=== PATIENT | male | born 1980 | race Caucasian/White ===

== ENCOUNTER → 2021-10-14 15:22 | Outpatient (CLI) | payer OTHER, SELFPAY ==
--- NOTE | ~2021-10-14 | US_ITS ---
US axilla LT 10/14/2021 15:45 Indication: Swollen left axillary lymph nodes. Procedure: High-resolution ultrasound of the left axilla Comparison: No prior studies for comparison. Findings: There are normal left axillary lymph nodes, largest measuring 1.3 cm maximum dimension with normal fatty hilum. No suspicious masses or fluid collections. Impression: 1: Normal left axillary lymph nodes. Reviewed, dictated and finalized at location A. [employer] DAYC[employer] PROVIDER Impression: 1: Normal left axillary lymph nodes.
== END ==
PROVIDERS: PCP Nurse Practitioner; Visit Provider Nurse Practitioner
DX: R59.0 Localized enlarged lymph nodes (principal)
CPT/HCPCS: 76882

== ENCOUNTER 2022-04-09 10:16 | Observation (INO) | payer OTHER, SELFPAY ==
[2022-04-09] VITALS (30 sets, daily range): BP systolic 100–126; BP diastolic 53–84; PULSE 65–108; RESP 12–20; TEMP 36.4–36.6; O2SAT 92–100; BMI 25.8
--- NOTE | ~2022-04-09 | CT_ITS ---
EXAMINATION: CT brain wo con INDICATION: Transient alteration of awareness, head injury COMPARISON: None TECHNIQUE: Standard unenhanced head CT. The dose-length product (DLP) was 681.00 mGy-cm. The mA was a djusted according to patient size. Iterative reconstruction technique was employed. FINDINGS: There is no intracranial hemorrhage, acute infarction, or abnormal mass lesion. The ventric les are normal. There is no abnormal mass effect or midline shift. The finch-white matter differentiat ion is normal. The basal cisterns are patent. There is a right parietal scalp hematoma. The orbits ar e normal. There is mild mucosal thickening of the paranasal sinuses. IMPRESSION: 1. RIght parietal scalp hematoma without acute intracranial abnormality. 2. Sinus disease. Reviewed, dictated and finalized at location A.
--- NOTE | 2022-04-09 10:20 | ECG_ITS ---
Measurements Intervals [place] Rate: 90 P: 44 HI: 183 QRS: 52 QRSD: 85 T: 77 QT: 309 QTc: 378 Interpretive Statements SINUS RHYTHM NONSPECIFIC T-WAVE ABNORMALITY NO PREVIOUS ECG AVAILABLE FOR COMPARISON Electronically Signed On 04-09-2022 16:47:54 CDT by Liya Leija M.D.
[2022-04-09 10:36] LABS: Basophils Percent Auto 0.4 % (0.2-1.2); Eosinophils Absolute Auto 0.1 K/mm3 (0-0.3); Eosinophils Percent Auto 2.1 % (0-4.4); Hematocrit 41.5 % (42.0-52.0); Hemoglobin 13.6 g/dL (14.0-18.0); Immature Granulocyte Absolute 0.01 K/mm3 (0.00-0.031); Immature Granulocyte Percent A 0.2 % (0-0.5); Immature Platelet Fraction Pct 8.4 % (0.9-11.2); Lymphocytes Absolute Auto 0.65 K/mm3 (0.9-3.2); Lymphocytes Percent Auto 12.6 % (18.3-44.2); Mean Corpuscular HGB Conc 32.8 g/dl (32-36); Mean Corpuscular Hemoglobin 29.4 pg (26-34); Mean Corpuscular Volume 89.6 fl (80-100); Mean Platelet Volume 10.6 fl (7.4-10.4); Monocytes Absolute Auto 0.4 K/mm3 (0.1-0.6); Monocytes Percent Auto 8.1 % (2.6-8.5); Neutrophils Percent Auto 76.6 % (45.5-73.1); Platelet Count Result 112 k/mm3 (150-375); Red Blood Count 4.63 M/mm3 (4.6-6.20); White Blood Count 5.2 K/mm3 (4.5-10.0)
[2022-04-09 10:44] LABS: Alanine Aminotransferase 23 U/L (6-50); Albumin Level 4.4 g/dL (3.5-5.1); Alkaline Phosphatase 76 U/L (38-126); Anion Gap 6 mmol/L (8-16); Aspartate Amino Transferase 27 U/L (17-59); Bilirubin,Total 0.7 mg/dL (0.2-1.3); Blood Urea Nitrogen 12 mg/dL (9-20); Calcium 8.4 mg/dL (8.4-10.2); Carbon Dioxide 27 mmol/L (22-30); Chloride 103 mmol/L (98-107); Estimated Glomerular Filt Rate > 60; Glucose 100 mg/dL (65-110); Potassium 4.2 mmol/L (3.4-5.0); Sodium 136 mmol/L (137-145)
--- NOTE | 2022-04-09 12:05 | ED.GENADULT ---
HPI - General Adult General Chief complaint: Syncope Stated complaint: Fever, Syncope Time Seen by Provider: 04/09/22 11:31 History of Present Illness HPI narrative: 41-year-old male presented to the emergency department for evaluation after having a syncopal episode. Patient states yesterday when he woke up he was having body aches and these persisted throughout the day. Patient states last night he was having chills and rigors but denies any fever. Patient states he was camping last week. Patient denies having any ticks. Patient states other people who are camping with did have ticks. Patient denies any rash. Patient complains of generalized body aches but no specific joint pain. Patient is vaccinated and boostered to COVID. Patient states this morning he was urinating and after urination he felt like he was going to pass out. Patient called out to his and did ultimately fall and strike his head. Patient did have a brief loss of consciousness. Patient initially denied any headache upon arrival to the ED. Related Data Allergies Allergy/AdvReac Type Severity Reaction Status Date / Time No Known Allergies Allergy Verified 04/09/22 14:52 Review of Systems Review of Systems: CONSTITUTIONAL: See HPI EYES: Denies visual changes, redness, or discharge. ENT: Denies rhinorrhea, congestion, sore throat, or otalgia. CARDIOVASCULAR: Denies chest pain, palpitations, or edema. RESPIRATORY: Denies cough or dyspnea. GASTROINTESTINAL: Denies abdominal pain, nausea, vomiting, or diarrhea. GENITOURINARY: Denies dysuria or hematuria. SKIN: Denies rash or itching. MUSCULOSKELETAL: Generalized myalgia. NEUROLOGIC: See HPI PMFSH Family History Family History Grandparent Family history of chronic obstructive pulmonary disease Family history of lung cancer Family history of malignant neoplasm of breast Mother Family history of malignant neoplasm of breast, Onset Age: 63 Social History Social History Smoking status: Never smoker Second hand tobacco smoke exposure: No Alcohol intake: current Substance use: never Spiritual care concerns: No Exam Narrative: APPEARANCE: Well appearing, no pain, no distress, well-nourished. HEAD: normocephalic, atraumatic. EYES: PERRLA/EOMI, conjunctivae clear. NOSE: Normal no drainage EARS:TMS clear with good light reflex. THROAT: Pharynx clear, no exudate. NECK: Supple. No adenopathy, no masses. RESPIRATORY: Airway patent, respirations nonlabored. Clear to auscultation bilaterally, no rales, rhonchi, wheezing. CARDIOVASCULAR: Regular rate and rhythm without murmurs rubs or gallops. ABDOMINAL: Soft, nontender, nondistended, normal bowel sounds MUSCULOSKELETAL: Moves all extremities. Strength/ROM intact, No edema, No calf tenderness. NEURO: Alert. Cranial nerves II through XII intact. Grossly intact SKIN: Warm, dry. Normal Color. Scalp abrasion Course Course Emergency Course: During patient's orthostatic vitals he had onset of bradycardia and another syncopal episode. Head CT was negative. Patient's flu and COVID were negative. Case discussed with the hospitalist and patient was admitted to telemetry. All questions concerns were addressed. Patient was stable at time of admission. Vital Signs Vital signs: Vital Signs Temperature 97.7 F 04/09/22 10:24 Pulse Rate 96 04/09/22 10:24 Respiratory Rate 20 04/09/22 10:24 Blood Pressure 118/72 04/09/22 10:24 Pulse Oximetry 100 04/09/22 10:24 Oxygen Delivery Room Air 04/09/22 10:24 Temperature 97.6 F 04/09/22 17:18 Pulse Rate 80 04/09/22 17:18 Respiratory Rate 20 04/09/22 17:18 Blood Pressure 114/60 04/09/22 17:18 Pulse Oximetry 92 04/09/22 17:18 Oxygen Delivery Room Air 04/09/22 17:22 Medical Decision Making Vital Signs Vital Signs: Vital Signs Temperature 97.7 F
--- NOTE | 2022-04-09 14:52 | PC.NURSE ---
PT CLOSE TO SYNCOPAL EVENT WHILE DOING ORTHOS. PROVIDER AWARE LABS ADDED, CT ORDERED, FLUIDS TO BE GIVEN
[2022-04-09 15:02] LABS: Influenza A QL RT-PCR Negative (Negative); Influenza B QL RT-PCR Negative (Negative); SARS-CoV-2 RNA PCR Negative
[2022-04-09] MEDS: SODIUM CHLORIDE 0.9% IV 1,000 ML 999 ML IV CONT (15:03)
[2022-04-09 15:19] LABS: Appearance Urine Clear (Clear); Bilirubin Urine Negative (Negative); Blood Urine Negative (Negative); Glucose Urine UA Negative (Negative); Ketones Urine 1+ mg/dL (Negative); Leukocyte Esterase Ur Negative LEU/UL (Negative); Nitrate Urine Negative (Negative); Protein Urine Negative (Negative); Specific Grav Ur 1.015 (1.001-1.035); Urobilinogen Urine 0.2 mg/dL (<2.0)
[2022-04-09 15:20] LABS: Add Urine Microscopic? YES; Color Urine Light Yellow (Yellow)
[2022-04-09 15:25] LABS: RBC Urine 0-2 /hpf (0-2); WBC Urine 0-3 /hpf
--- NOTE | 2022-04-09 15:30 | PM.IMHP ---
H&P: HPI History of Present Illness Date/Time: 04/09/22 15:30 Chief Complaint: Syncope. Narrative: This is a 41-year-old male with psoriasis who presented to the ED via private vehicle from home for evaluation after syncopal episode. Yesterday morning he woke up to mild, generalized body aches and a slight sore throat. He took Advil and was able to go to work however last night he once again started experiencing body aches and slept poorly due to the aches and chills. This morning after urinating he started to feel lightheaded and woozy so he called out for his and as she entered the room he was falling backwards onto the floor. He briefly lost consciousness and he was not confused when he came to. They decided that he probably need to be checked out and in son helped him up. He was able to get dressed, walk to the car, and walk into the hospital without issue. His workup has been relatively unremarkable and in fact there were plans for probable discharge however when orthostatic vital signs were being obtained he became woozy, pale, and bradycardic. He does not think he lost consciousness this time however staff members report that he was not very responsive. I was asked to admit the patient in this setting for further evaluation. With further questioning his daughter had a fever for about 24 hours a couple of days ago though that has since resolved. The family went camping last weekend though he denies mosquito and tick bites he does report that multiple members of his camping democrat found several ticks on their person's. At the time my evaluation he is resting comfortably. He denies headache, vertigo, focal weakness, paresthesias, significant cold and flu symptoms, chest pain, pleuritic pain, palpitations, nausea, vomiting, diarrhea, dysuria, joint swelling, joint redness, rash, and lesions Review of Systems Review of Systems: Twelve systems were reviewed and are negative except for as per HPI. [facility] Past Medical History Medical History (Updated 04/09/22 @ 23:30 by Chayo Kapoor PA-C) Psoriasis Surgical History Surgical History (Updated 04/09/22 @ 22:38 by Chayo Kapoor PA-C) History of wisdom tooth extraction Family History Family History Grandparent Family history of chronic obstructive pulmonary disease Family history of lung cancer Family history of malignant neoplasm of breast Mother Family history of malignant neoplasm of breast, Onset Age: 63 Social History Social History (Updated 04/09/22 @ 22:39 by Chayo Kapoor PA-C) Social History: Surrogate decision maker: Kianna Salazar, . Code status: Full code. Smoking status: Never smoker Second hand tobacco smoke exposure: No Alcohol intake: current Alcohol use details: Social alcohol use in moderation. Substance use: never Additional living arrangements comments: The patient lives with his and their 4 children in [place]. Spiritual care concerns: No Meds Home Medications and Allergies Allergies Allergy/AdvReac Type Severity Reaction Status Date / Time No Known Allergies Allergy Verified 04/09/22 14:52 Vital Signs Vital Signs - 24 hr 04/09/22 10:24 04/09/22 11:15 04/09/22 11:17 Temperature 97.7 F Pulse Rate 96 82 89 Respiratory Rate 20 16 Blood Pressure 118/72 113/79 Pulse Oximetry 100 100 Oxygen Delivery Room Air 04/09/22 11:13 04/09/22 11:14 04/09/22 11:15 Temperature Pulse Rate 91 85 84 Respiratory Rate 16 14 17 Blood Pressure 117/78 Pulse Oximetry 100 99 100 Oxygen Delivery 04/09/22 11:16 04/09/22 11:30 04/09/22 11:45 Temperature Pulse Rate 91 87 86 Respiratory Rate 20 15 16 Blood Pressure 113/79 Pulse Oximetry 100 99 99 Oxygen Delivery 04/09/22 12:00 04/09/22 14:25 04/09/22 14:28 Temperature Pulse Rate 95 83 108 H Respiratory Rate 15 Blood Pressure 109/71 111/81
[2022-04-09] MEDS: KETOROLAC 15 MG/ML VIAL (*BKC) IV PUSH (15:46)
[2022-04-09 15:57] LABS: Thyroid Stimulating Hormone Reflex 0.615 uIU/mL (0.465-4.68)
--- NOTE | 2022-04-09 17:04 | PC.NURSE ---
This patient, Errol Salazar, was admitted to 2 Medical Room 241-. Patient/family oriented to hospital policies and general routines including ID bracelet, bed and alarms, visiting hours, pain management, procedures, bathroom and other care routines, personal items, smoking policy, room service/diet, and visiting hours. Information on how to activate the Rapid Response Team has been discussed. Patient/Family are encouraged to report perceived risks to care and to ask questions if they do not understand what they are told or what they should do.
[2022-04-09] MEDS: SODIUM CHLORIDE 0.9% IV 1,000 ML 125 ML IV CONT (17:39)
[2022-04-10] VITALS (7 sets, daily range): BP systolic 108–123; BP diastolic 62–78; PULSE 67–102; RESP 16; TEMP 37.1; O2SAT 97
[2022-04-10] MEDS: SODIUM CHLORIDE 0.9% IV 1,000 ML 125 ML IV CONT (04:21)
[2022-04-10] MEDS: LORATADINE 10 MG TABLET PO (05:24)
[2022-04-10 05:58] LABS: Hematocrit 35.3 % (42.0-52.0); Hemoglobin 11.7 g/dL (14.0-18.0); Immature Platelet Fraction Pct 7.9 % (0.9-11.2); Mean Corpuscular HGB Conc 33.1 g/dl (32-36); Mean Corpuscular Hemoglobin 30.2 pg (26-34); Mean Corpuscular Volume 91.2 fl (80-100); Mean Platelet Volume 10.8 fl (7.4-10.4); Platelet Count Result 95 k/mm3 (150-375); Red Blood Count 3.87 M/mm3 (4.6-6.20); Red Cell Distribution Width 12.1 % (11.5-14.5); White Blood Count 3.5 K/mm3 (4.5-10.0)
[2022-04-10 06:12] LABS: Alanine Aminotransferase 16 U/L (6-50); Albumin Level 3.3 g/dL (3.5-5.1); Alkaline Phosphatase 60 U/L (38-126); Anion Gap 1 mmol/L (8-16); Aspartate Amino Transferase 18 U/L (17-59); Bilirubin,Total 0.3 mg/dL (0.2-1.3); Blood Urea Nitrogen 9 mg/dL (9-20); CRP 3.6 mg/dL (<1.0); Calcium 7.6 mg/dL (8.4-10.2); Carbon Dioxide 24 mmol/L (22-30); Chloride 112 mmol/L (98-107); Estimated CRCL calculation 101 ml/min; Estimated Glomerular Filt Rate > 60; Glucose 92 mg/dL (65-110); Magnesium 2.1 mg/dL (1.6-2.3); Potassium 3.9 mmol/L (3.4-5.0); Sodium 137 mmol/L (137-145)
[2022-04-10] MEDS: ACETAMINOPHEN 325 MG TABLET 650 MG PO (09:24)
--- NOTE | 2022-04-10 13:44 | PCCCNOTE ---
On 04/10/22, the student, [Verito George], provided care and completed [facility] documentation on this patient. I have reviewed the student's documentation and agree with the findings.
[2022-04-14 00:13] LABS: Rickettsia rickettsii DNA, PCR NOT DETECTED
[2022-04-14 19:46] LABS: Lyme Disease Ab (IgM), Blot Negative (Negative); Lyme Disease Ab(IgG), Blot Negative (Negative)
--- NOTE | 2022-04-20 08:09 | PM.DS ---
DS: Admitting Diagnosis Discharge Date 04/10/22 Admitting Diagnosis syncope DS: Discharge Diagnosis Discharge Diagnosis (1) Syncope: Code(s): R55 - Syncope and collapse Status: Acute (2) Closed head injury: Code(s): S09.90XA - Unspecified injury of head, initial encounter Status: Acute (3) Thrombocytopenia: Code(s): D69.6 - Thrombocytopenia, unspecified Status: Acute DS: Summary Hospital Course Hospital Course: HPI: This is a 41-year-old male with psoriasis who presented to the ED via private vehicle from home for evaluation after syncopal episode. 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 He took Advil and was able to go to work however last night he once again started experiencing body aches and slept poorly due to the aches and chills. This morning after urinating he started to feel lightheaded and woozy so he called out for his and as she entered the room he was falling backwards onto the floor.? He briefly lost consciousness and he was not confused when he came to. They decided that he probably need to be checked out and in son helped him up.? He was able to get dressed, walk to the car, and walk into the hospital without issue. His workup has been relatively unremarkable and in fact there were plans for probable discharge however when orthostatic vital signs were being obtained he became woozy, pale, and bradycardic. He does not think he lost consciousness this time however staff members report that he was not very responsive. I was asked to admit the patient in this setting for further evaluation. With further questioning his daughter had a fever for about 24 hours a couple of days ago though that has since resolved. The family went camping last weekend though he denies mosquito and tick bites he does report that multiple members of his camping republican found several ticks on their person's. At the time my evaluation he is resting comfortably. He denies headache, vertigo, focal weakness, paresthesias, significant cold and flu symptoms, chest pain, pleuritic pain, palpitations, nausea, vomiting, diarrhea, dysuria, joint swelling, joint redness, rash, and lesions. Syncopal episode suspected to be relate to vasovagal or micturition syncope. some orthostasis as well. likely due to underlying infection. he was hydrated in the hospital and monitored. he remained stable during the hospital stay. he sustained a hematoma to the right parietal scalp from his fall. there was mild thrombocytopenia noted likely related to viral infection however needs to be monitored as op basis. he denied any appearance of any rash or tick bite. lyme disease evaluation with labs were ordered, awaiting result at the time of discharge. he is advised to promptly follow up with pcp if there is any appearance of rash. he was discharged home in a stable condition. Time Spent with Patient Time attestation: Total time spent providing and/or coordinating discharge services:45 mins Exam Narrative: General: Well-developed male supine in bed in no distress. HEENT: Hematoma in the right parietal scalp region. PERRL, EOMI. Sclerae anicteric. Tacky mucous membranes. Oropharynx clear and without erythema. Neck: Supple. No lymphadenopathy. Respiratory: Lungs are clear to auscultation bilaterally. Cardiovascular: Regular rate and rhythm with S1-S2. Gastrointestinal: Abdomen is soft, nontender, and nondistended with positive bowel sounds. Skin: Warm and dry. No bites, lesions, or rashes noted. Extremities: No cyanosis, clubbing, or edema. Radial and pedal pulses intact. Neurological: Alert and oriented Cranial nerves 2-12 are grossly intact. No gross focal deficits to casual conversation. Psychiatric: Pleasant and cooperative with normal mood and affect. Judgment and insight intact. DS: Data Imaging Radiologist's impression: ITS Impressions Head CT 04/09/22 15:02 IMPRESSION: 1.
== END 2022-04-10 12:18 | disposition home or self-care (01) ==
LOC: ANHED 15:40 → ANH2MED 16:30
PROVIDERS: Physician Assistant; Admitting Provider Hospitalist; Emergency Provider Emergency Medicine; PCP Nurse Practitioner; Visit Provider Internal Medicine
DX: R55 Syncope and collapse (principal); R52 Pain, unspecified; D69.6 Thrombocytopenia, unspecified; S00.03XA Contusion of scalp, initial encounter; W19.XXXA Unspecified fall, initial encounter; Z20.822 Contact with and (suspected) exposure to COVID-19
CPT/HCPCS: 36415; 70450; 80053; 81001; 83735; 84443; 85025; 85027; 85055; 86140; 86617; 87502; 87798; 87804; 93005; 96360; 96361; 96374; 99285; A9270; C9803; G0378; J1885; J7030; U0003; U0005